=== PATIENT | female | born 1980 | race Caucasian/White ===

== ENCOUNTER 2017-06-21 11:05 | Emergency (ER) | payer OTHER ==
[~2017-06-21] VITALS: Ht 177.8 cm; Wt 62.6 kg
--- NOTE | 2017-06-21 11:35 | NUR ---
mse completed, pt d/c'd [facility], hand out of [facility] given. pt ambulated w/o diff, took all belongings.
[2017-06-21 11:37] VITALS: BP 120/82
[2017-06-21] MEDS ORDERED: ACETAMINOPHEN ES 500 MG TABLET PO ONE (11:45)
[2017-06-21] MEDS ORDERED: ACETAMINOPHEN ES 500 MG TABLET ONE (11:46)
== END 2017-06-21 11:41 | disposition home or self-care (01) ==
LOC: ER 11:05
DX: K02.9 Dental caries, unspecified (principal); F17.200 Nicotine dependence, unspecified, uncomplicated
CPT/HCPCS: A4663